=== PATIENT | male | born 1970 | race Caucasian/White ===

== ENCOUNTER 2023-03-26 08:45 | Emergency (ER) | payer OTHER, SELFPAY ==
[2023-03-26 08:49] VITALS: BP 118/84; PULSE 100; RESP 18; TEMP 36.8; O2SAT 100; BMI 33.9
[2023-03-26 09:06] VITALS: PULSE 87
--- NOTE | 2023-03-26 09:16 | ED.GENADUL1 ---
HPI - General Adult General Chief complaint: Extremity Injury, Upper Stated complaint: UPPER EXTREMITY PAIN LEFT SHOULDER Time Seen by Provider: 03/26/23 09:05 Source: patient Mode of arrival: walk-in Limitations: no limitations History of Present Illness HPI narrative: Patient is a 30yo male who is presenting with acute on chronic left upper thoracic and left upper trapezius pain. Patient stated that he woke up one morning about a month ago and started having pain to his left upper thoracic and trapezius muscles that progressed throughout the day. Patient works at a home, does a lot of heavy lifting of bodies. Patient does not recall any specific event that were indicative causes pain. Patient has been seeing a chiropractor several times to help somewhat with his left upper trapezius and thoracic pain. Patient had deep tissue massage that did not help. Patient last week was placed on steroid pack and Flexeril to help somewhat. Patient felt better when he was on steroids, and the pain came back. Patient is seeing his nurse practitioner again tomorrow. Patient saw the nurse practitioner last week and that is who prescribed the steroids and Flexeril. Patient has been alternating ice and heat. Patient's doing Motrin intermittently. Patient's doing no stretching at home. . All systems are negative except as noted/marked. All systems reviewed and otherwise negative. . Nurses note and vital signs reviewed and patient is not hypoxic. General: The patient appears well and in no apparent distress. Patient is resting comfortably on cart. Patient is not toxic, lethargic, or listless Skin: Warm, dry, no pallor noted. There is no rash noted. No petechiae, purpura. Head: Normocephalic, atraumatic Eye: Normal conjunctiva, no drainage, EOMI. PERRL Ears, Nose, Mouth, and Throat: oral mucosa is moist. Nares patent. Mouth without vesicles. Cardiovascular: Regular Rate and Rhythm, no murmur, gallop, rub Respiratory: Patient is in no distress, no accessory muscle use, lungs are clear to auscultation, no wheezing, rales or rhonchi Back: Patient has moderate tenderness to palpation to the left upper trapezius, left upper thoracic area over the left scapula. Patient does have full range of motion of left shoulder causing some pain to left trapezius/thoracic muscle. Patient has reproducible tenderness to palpation to the left superior lateral aspect of his pectoralis major muscle as well, no rash. Otherwise the rest of the back is non-tender, no CVA tenderness bilaterally to percussion. No CT LS midline pain GI: soft, no tenderness to palpation, no masses appreciated. No rebound, guarding, or rigidity noted. No flank pain bilateral, No distention Musculoskeletal: Patient has full range of motion of all of the extremities, no motor, sensory, or focal neurological deficits Neurological: A&O x3, normal speech Psychiatric: Cooperative Related Data Home Medications Medication Instructions Recorded Confirmed atorvastatin 10 mg tablet 10 mg PO DAILY 03/26/23 03/26/23 cyclobenzaprine 10 mg tablet 10 mg PO Q8H PRN pain 03/26/23 03/26/23 levothyroxine 25 mcg tablet 25 mcg PO DAILY 03/26/23 03/26/23 prednisone 20 mg tablet 40 mg PO DAILY 03/26/23 03/26/23 Previous Rx's Medication Instructions Recorded hydrocodone 5 mg-acetaminophen 325 1 tab PO Q4H PRN pain #10 tabs 03/26/23 mg tablet meloxicam 7.5 mg tablet 7.5 mg PO DAILY #14 tabs 03/26/23 Allergies Allergy/AdvReac Type Severity Reaction Status Date / Time No Known Drug Allergies Allergy Verified 03/26/23 08:53 PFSH PFSH Social History Smoking status: Current every day smoker Exam Constitutional Vital Signs, click to edit/add: Last Vital Signs Temp 98.3 F 03/26/23 08:49 Pulse 87 03/26/23 09:06 Resp 18 03/26/23 08:49 BP 118/84 03/26/23 08:49 Pulse Ox 100 03/26/23 08:49 O2 Del Method Room Air 03/26/23 08:49 Course Vital Signs Vital signs: Vital Signs Temperature 98.3 F 03/26/23 08:49 Pulse Rate 100 H 03/26/23 08:49 Respiratory Rate 18 03/26/23 08:49 Blood Pressure 118/84 03/26/23 08:49 Pulse Oximetry 100 03/26/23 08:49 Oxygen Delivery Method Room Air 03/26/23 08:49 Temperature 98.3 F 03/26/23 08:49 Pulse Rate 87 03/26/23 09:06 Respiratory Rate 18 03/26/23 08:49 Blood Pressure 118/84 03/26/23 08:49 Pulse Oximetry 100 03/26/23 08:49 Oxygen Delivery Method Room Air 03/26/23 08:49 Medical Decision Making MDM Narrative Medical decision making narrative: Patient was given injection of Toradol. Education and ice and stretching was discussed at bedside. Patient was given prescription of Mobic and a few Quail to help with pain. Patient is seeing his nurse practitioner tomorrow and will most likely be prescribed physical therapy. Patient was encouraged to follow back up with his chiropractor that was hoping as well. Discharge Plan Discharge Chief Complaint: Extremity Injury, Upper Clinical Impression: Strain of left trapezius muscle, Chronic left-sided thoracic back pain Patient Disposition: Home, Self-Care Condition: Good Prescriptions / Home Meds: New meloxicam 7.5 mg tablet 7.5 mg PO DAILY Qty: 14 0RF hydrocodone-acetaminophen 5-325 mg tablet 1 tab PO Q4H PRN (Reason: pain) Qty: 10 0RF No Action atorvastatin 10 mg tablet 10 mg PO DAILY levothyroxine 25 mcg tablet 25 mcg PO DAILY cyclobenzaprine 10 mg tablet 10 mg PO Q8H PRN (Reason: pain) prednisone 20 mg tablet 40 mg PO DAILY Instructions: Muscle Strain (ED), Chronic Pain (ED), Back Pain (ED), Chronic Neck Pain (DC) Additional Instructions: Ice 20 minutes on, 20 minutes off. Do not use heat as discussed. Use Mobic daily, only use pain medication as needed at home, did not use it while working or driving. See her practitioner tomorrow, you probably will need physical therapy as well. Stand Alone Forms: Portal Instructions Referrals: Physician,Non-Staff, MD [Primary Care Provider] - 1 week Discharge Date/Time: 03/26/23 09:36
[2023-03-26] MEDS: KETOROLAC TROMETHAMINE 60 MG/2 ML VIAL IM (09:19)
== END 2023-03-26 09:36 | disposition home or self-care (01) ==
PROVIDERS: Emergency Provider Emergency Medicine
DX: S46.812A Strain of other muscles, fascia and tendons at shoulder and upper arm level, left arm, initial encounter (principal); X50.0XXA Overexertion from strenuous movement or load, initial encounter; M54.6 Pain in thoracic spine; G89.29 Other chronic pain; Z79.899 Other long term (current) drug therapy; Z79.890 Hormone replacement therapy
CPT/HCPCS: 96372; 99284